=== PATIENT | female | born 1955 | race Caucasian/White ===

== ENCOUNTER 2017-08-29 08:52 | Emergency (ER) | payer OTHER ==
[2017-08-29 09:50] VITALS: BP 138/56
--- NOTE | 2017-08-29 10:41 | UC ---
Dental HPI - HPI Summary HPI Summary: c/o mouth pain - left lower side of mouth with piece of tooth missing on last tooth - took naproxyn x 1 this am with some relief. - History of Current Complaint Chief Complaint: UCDentalProblem Stated Complaint: DENTAL Time Seen by Provider: 08/29/17 10:32 Onset/Duration: Sudden Onset Severity: Moderate Pain Scale Used: 0-10 Numeric - 5/10 Aggravating Factor(s): Cold, Chewing - Allergies/Home Medications Allergies/Adverse Reactions: Allergies Allergy/AdvReac Type Severity Reaction Status Date / Time No Known Allergies Allergy Verified 08/29/17 09:45 Home Medications: Home Medications Naproxen Sodium [Naproxen Sodium 220 mg] 220 mg PO BID PRN 08/29/17 [History Confirmed 08/29/17] PMH/Surg Hx/FS Hx/Imm Hx Previously Healthy: Yes - Surgical History Surgical History: Yes Surgery Procedure, Year, and Place: foot surgery - Social History Alcohol Use: None Substance Use Type: None Smoking Status (MU): Heavy Every Day Tobacco Smoker Review of Systems Constitutional: Negative Skin: Negative Eyes: Negative ENT: Dental Pain - left lower tooth on bottom +17 on graph Cardiovascular: Negative Gastrointestinal: Negative Genitourinary: Negative Motor: Negative Neurovascular: Negative Neurological: Negative Psychological: Negative Is Patient Immunocompromised?: No All Other Systems Reviewed And Are Negative: Yes Physical Exam Triage Information Reviewed: Yes Vital Signs: Initial Vital Signs Temp 97.8 F 08/29/17 09:47 Pulse 65 08/29/17 09:47 Resp 18 08/29/17 09:47 BP 138/56 08/29/17 09:47 Vital Signs Reviewed: Yes Eyes: Positive: Conjunctiva Clear ENT: Positive: Dental tenderness - left side of mouth / jaw Dental: Positive: Percussion Tenderness @, Gross Decay/Caries @ - piece of tooth missing, Abscess @ Neck: Positive: Nontender Psychological Exam: Normal Skin Exam: Normal Dental Complaint Course/Dx - Course Course Of Treatment: take abx as directed - take with food to reduce gi upset - discussed use and common side effects of med. increase fluid intake while on abx to prevent dehyration. f/u dentist this week - Differential Dx/Diagnosis Differential Diagnosis/Dx: Dental Abscess, Dental Caries, Fractured Tooth Provider Diagnoses: dental abscess/pain Discharge - Discharge Plan Condition: Stable Disposition: HOME Prescriptions: Penicillin VK 500 MG TAB(NF) [Penicillin VK 500 mg Tab] 500 mg PO QID 10 Days # 40 tab Patient Education Materials: Dental Abscess (ED) Referrals: Mary Grijalva MD [Primary Care Provider] - 1 Week
== END 2017-08-29 10:48 | disposition home or self-care (01) ==
LOC: UCCORT 08:52
DX: K04.7 Periapical abscess without sinus (principal); K13.79 Other lesions of oral mucosa; F17.210 Nicotine dependence, cigarettes, uncomplicated
CPT/HCPCS: 99202; G0463